=== PATIENT | female | born 1955 ===

== ENCOUNTER 2022-11-02 05:50 | Day surgery (SDC) | payer OTHER ==
[~2022-11-02] VITALS: Ht 152.4 cm; Wt 97.4 kg
[~2022-11-02 05:50] MED LIST: ASCO500 PO; BUPR75 PO; CALCIUM PO; MULVITA PO
--- NOTE | 2022-11-02 07:02 | NUR ---
History, Chart, Medications and Allergies reviewed before start of procedure. Lungs clear T/O to Auscultation. Patient confirms NPO status and agrees with scheduled surgery. Pre-Op teaching done. Pt verbalizes understanding. PT BELONGINGS PLACED UNDERNEATH GURNEY FOR SAFEKEEPING. PT GLASSES TAKEN TO PACU FOR SAFEKEEPING.
--- NOTE | 2022-11-02 07:34 | NUR ---
PT ALLERGIES REVIEWED AND CLARIFIED WITH DR. BULLOCK, DR BULLOCK OKAYED TO GIVE ANCEF DESPITE PENICILLIN ALLERGY.
--- NOTE | 2022-11-02 19:04 | NUR ---
SHIFT SUMMARY PT HAS STRUGGLED w/ INT NAUSEA & DIZZINESS w/ ANY MOBLIZATION. NO EMESIS EXECPT SMALL AMOUNT WHEN ATTEMPTED TO WORK w/ THERAPY. WAS MEDICATED IN PACU/OR w/ ZOFRAN & REGLAN & THEN PT DECLINED NAUSEA THIS EVENING w/ DINNER. ABLE TO DRINK FLUIDS & TAKES SMALL BITES OF MEALS. PAIN WELL MANAGED. DUE TO SAFETY, PT USED BSC INSTEAD OF AMBULATING TO BATHROOM LAST VOID.
[2022-11-03 05:06] LABS: BASOPHILS ABSOLUTE AUTO 0.02 K/mm3 (0.00-0.23); BASOPHILS PERCENT AUTO 0 % (0-2); EOSINOPHILS ABSOLUTE AUTO 0.03 K/mm3 (0.00-0.68); EOSINOPHILS PERCENT AUTO 0 % (0-6); Hematocrit 30.6 % (33.0-51.0); Hemoglobin 10.2 g/dL (11.5-16.0); IMMATURE GRAN ABSOLUTE AUTO 0.03 K/mm3 (0.00-0.10); IMMATURE GRAN PERCENT AUTO 0 % (0-1); LYMPHOCYTES ABSOLUTE AUTO 0.84 K/mm3 (0.84-5.20); LYMPHOCYTES PERCENT AUTO 10 % (21-46); MONOCYTES ABSOLUTE AUTO 1.05 K/mm3 (0.16-1.47); MONOCYTES PERCENT AUTO 12 % (4-13); Mean Corpuscular HGB 30.4 pg (26.0-34.0); Mean Corpuscular HGB Conc 33.3 g/dL (31.5-36.5); Mean Corpuscular Volume 91 fL (80-100); NEUTROPHILS ABSOLUTE AUTO 6.62 K/mm3 (1.96-9.15); NEUTROPHILS PERCENT AUTO 77 % (41-73); Platelet Count 213 K/mm3 (150-400); RDW Coefficient Variation 13.5 % (11.7-14.2); RDW Standard Deviation 45.6 fL (35.1-46.3); Red Blood Cell Count 3.36 M/mm3 (3.80-5.20); White Blood Cell Count 8.59 K/mm3 (4.00-11.30)
--- NOTE | 2022-11-03 05:25 | NUR ---
POD 1 S/P R NICCI. PT BP HYPO 90'S/50'S THIS SHIFT, PT ASYMPTOMATIC. DRESSINGS CDI, R HIP SOFT TO PALP. PAIN MGD W/SCHEDULED TYLENOL/TORADOL W/REP RELIEF; PT DENIED NEED FOR ADDITIONAL PAIN MEDS. PT UP OOB W/FWW+1 ASSIST, DENIED DIZZINESS/N/V WHEN UP. PT IS VOIDING URINE W/O DIFFICULTY. PLAN TO MOBILIZE W/PT AND D/C HOME.
[2022-11-03 05:43] LABS: Bun/Creatinine Ratio 16.1 (12.0-20.0); Calcium, Blood 8.4 mg/dL (8.5-10.1); Creatinine, Blood 0.75 mg/dL (0.40-1.00); Magnesium, Blood 2.2 mg/dL (1.6-2.4); Potassium, Blood 3.9 mmol/L (3.5-5.5)
[2022-11-03] MEDS ORDERED: ASPI81CH PO (10:36)
[2022-11-03] MEDS ORDERED: OXAYDO5 M1 PO (10:37)
[2022-11-03] MEDS ORDERED: SULTRIDS PO (10:40)
[2022-11-03] MEDS ORDERED: PROM25 PO (10:40)
--- NOTE | 2022-11-03 14:46 | NUR ---
1230 DISCHARGED TO HOME, PT DENIES NAUSEA, GLENDY PO FOOD AND FLUIDS, VOIDING CLEAR YELLOW URINE. PT VERBALIZES UNDERSTANDING OF DISCHARGE INSTRUCTIONS AND IN AGREEMENT WITH PLAN TO DISCHARGE. DRESSING SUPPLIES PROVIDED TO PATIENT
== END 2022-11-03 12:28 | disposition home or self-care (01) ==
LOC: ORSCMMR 05:50 → SURS 11:32 → ORSCMMR 11-03 12:28
PROVIDERS: Orthopaedic Surgery
PROC: 0SR90JA Replacement of Right Hip Joint with Synthetic Substitute, Uncemented, Open Approach (ICD-10-PCS; principal; 2022-11-02 07:30)
DX: M16.11 Unilateral primary osteoarthritis, right hip (principal); E66.01 Morbid (severe) obesity due to excess calories; Z68.41 Body mass index [BMI] 40.0-44.9, adult; J45.909 Unspecified asthma, uncomplicated; Z79.899 Other long term (current) drug therapy
CPT/HCPCS: 36415; 72170; 80048; 83735; 85025; 94760; 97110; 97162; 97165; 97530; 97535; A9270; C1713; C1776; J0171; J0690; J0735; J1100; J1170; J1885; J2250; J2370; J2405; J2704; J2765; J2795; J3010; J3370; J7120